=== PATIENT | female | born 1960 | race Caucasian/White ===

== ENCOUNTER 2016-07-30 13:31 | Emergency (ER) | payer OTHER ==
[~2016-07-30] VITALS: Ht 162.6 cm; Wt 63.6 kg
[~2016-07-30 13:31] MED LIST: ALBU0.08 NEB; ALBU1AER9 INH; ATV1 PO; BUPR-79 PO; CYAN3INJ IM; FENT75DI2 TOP; LEVO50TA6 PO; ONDA-63 PO; ONDA4TAB46 SL; ONDA8TAB62 SL; OXYC7.5T65 PO; PRM/125 PO; PROM50TA3 PO; VARE1PAK10 PO
[2016-07-30 13:41] VITALS: TEMP 36.9; Ht 162.6 cm; Wt 63.6 kg
[2016-07-30] MEDS ORDERED: OXGN (14:42)
--- NOTE | 2016-07-30 15:37 | EMERGENCY ROOM VISIT NOTE ---
History Report prepared by Win: Meri Mcmahon Under the Supervision of: Dr. Darron Magaña D.O. First contact with patient: 14:44 Chief Complaint: DIARRHEA Stated Complaint: C-DIFF Nursing Triage Summary: dx with c diff for 2 months pt on antibiotics pt reports increase pain and dirrahea History of Present Illness The patient is a 56 year old female who presents to the Emergency Room with complaints of persistent diarrhea for the past 6 months. She states she will have up to 20 episodes of diarrhea a day, she has "lost count". She reports she was diagnosed with clostridium difficile 2 months ago and was placed on antibiotics. She also has a history of lung cancer and states she has been on multiple antibiotics for her cancer in the past few months. She underwent a lobectomy in November 2014 and uses Oxygen at night to help her breathe. She has been vomiting intermittently ever since the diarrhea started, and she believes this is secondary to abdominal pain that she is also experiencing. Her pain is located in her lower stomach, and she reports pain medicine and anti-emetics help relieve her discomfort. She denies any known triggers for her abdominal pain but admits walking worsens it, as does transitioning from sitting to standing. The patient states she finished her most recent round of antibiotics yesterday. Her last bowel movement was about 1 hour prior to arrival. She denies any melena or hematochezia, but states the last time she was in the hospital, she was told there was blood in her stool. She denies any urinary symptoms, fevers or URI symptoms. She denies any history of toxic megacolon or colitis. Source of History: patient Onset: 6 months [employer] Position: abdomen Timing: other (persistent) Associated Symptoms: + abdominal pain, + nausea, + vomiting, No fevers, No hematochezia, No melena, No urinary symptoms Review of Systems See HPI for pertinent positives and negatives. A total of ten systems were reviewed and were otherwise negative. Past Medical & Surgical Medical Problems: (1) Acute head trauma (2) Acute headache (3) Asthma, Unspecified (4) Benign hypertension (5) Bronchitis (6) Cephalgia (7) Chest pain (8) Chronic neck pain (9) Chronic obstructive lung disease (10) Coronary artery disease (11) Cough with hemoptysis (12) Depression (13) Ear pain, right (14) Facial pain (15) Gastroparesis (16) Headache (17) Headache (18) Headache (19) Headache (20) Hemoptysis (21) Kidney stone (22) Lung cancer (23) Lung cancer (24) Migraine (25) Migraine (26) Migraine (27) Migraine (28) MIGRAINE UNSPECIFIED W/O INTRACT MGRN W/O STATUS MIGRAINOSUS (29) MYALGIA AND MYOSITIS NOS (30) Pneumonia (31) PNEUMONIA, ORGANISM NOS (32) Right sided abdominal pain (33) Transient ischemic attack (34) UTI (urinary tract infection) Surgical Problems: (1) section (2) Cholecystectomy (3) History of lobectomy of lung (4) Hysterectomy (5) Post-operative state (6) S/P thoracotomy Family History Diabetes mellitus FH: cancer FH: heart disease FHx: gallbladder disease Hypertension Kidney stones Social History Smoking Status: Former Smoker Alcohol Use: none Drug Use: none Marital Status: Housing Status: lives with family Occupation Status: employed Current/Historical Medications Scheduled Bupropion (Wellbutrin Sr), 150 MG PO BID Cyanocobalamin (Vitamin B-12 Inj), 1 ML IM WK Estrogens, Conjugated (Premarin), 1.25 MG PO QAM Fentanyl (Fentanyl), 75 MCG TOP [id number] Levothyroxine Sodium (Levothyroxine Sodium), 50 MCG PO DAILY Lorazepam (Lorazepam), 1 MG PO BID Oxygen (Oxygen), 2 LITERS NA PRN Varenicline Tartrate (Chantix Continuing Month), 1 MG PO BID Scheduled PRN Albuterol Soln (Proventil 0.083% 2.5MG/3ML), 2.5 MG NEB Q4H PRN for SOB/Wheezing Albuterol Sulfate (Proair Hfa), 2 PUFFS INH Q4H PRN for Wheezing Ondansetron (Ondansetron HCl), 8 MG PO Q8 PRN for Nausea or Vomiting Ondansetron Hcl (Zofran), 4 MG SL Q6H PRN for Nausea Ondansetron Odt (Zofran Odt), 8 MG SL Q6H PRN for Nausea Oxycodone/Acetaminophen 7.5MG/325MG (Percocet 7.5MG/325MG), 1 TAB PO Q4H PRN for Pain Promethazine Hcl (Phenergan), 50 MG PO Q6 PRN for Nausea or Vomiting Allergies Coded Allergies: Codeine (Verified Allergy, Intermediate, HIVES-OK TO TAKE PERCOCET,VICODIN , ETC, 07/30/16) HAS HIVES AND TROUBLE BREATHING WITH TYLENOL # 3, OK TO TAKE PERCOCET, VICODIN, ETC. Ketorolac (Verified Allergy, Intermediate, HIVES, 07/30/16) PATIENT STATES TROUBLE BREATHING AFTER TAKING Coconut (Verified Allergy, Mild, RASH, 07/30/16) Metoclopramide (Verified Allergy, Mild, RASH, SOB, 07/30/16) Aspirin (Verified Allergy, Unknown, rash, 07/30/16) Iodinated Diagnostic Agents (Verified Allergy, Unknown, TACHYCARDIA,SKIN WARM &RED, DRY MOUTH, 07/30/16) Latex1 -Allergic Contact Dermititis (Verified Allergy, Unknown, RASH, ) Naratriptan (Verified Allergy, Unknown, UNKNOWN, 07/30/16) Nortriptyline (Verified Allergy, Unknown, UNKNOWN, 07/30/16) Quinolones (Verified Allergy, Unknown, UNKNOWN, 07/30/16) Morphine (Verified Adverse Reaction, Intermediate, HALLUCINATIONS, 07/30/16) Shellfish (Verified Adverse Reaction, Intermediate, SHORTNESS OF BREATH, ) Physical Exam Vital Signs Date Time Temp Pulse Resp B/P Pulse Ox O2 Delivery O2 Flow Rate FiO2 07/30/16 18:35 85 18 132/87 95 07/30/16 15:57 97 18 137/95 96 Room Air 07/30/16 13:41 36.9 103 20 139/80 91 Room Air Physical Exam GENERAL: Awake, alert, well-appearing, in no acute distress ABDOMEN: Soft, non-distended. Diffuse tenderness on exam. Medical Decision & Procedures ER Provider Diagnostic Interpretation: This X-Ray was reviewed and interpreted by myself and the radiologist. CHEST AND ABDOMEN 2 VIEWS IMPRESSION: 1. No significant change compared to the prior study. 2. No acute process within the chest. 3. Moderate to large amount of well-formed stool seen throughout the colon and rectum. Electronically signed by: Lazaro Real M.D. 07/30/2016 5:23 PM Laboratory Results 07/30/16 16:32 Red Blood Count 4.22, Mean Corpuscular Volume 88.9, Mean Corpuscular Hemoglobin 29.4, Mean Corpuscular Hemoglobin Concent 33.1, Mean Platelet Volume 10.2, Neutrophils (%) (Auto) 59.4, Lymphocytes (%) (Auto) 26.7, Monocytes (%) (Auto) 10.4, Eosinophils (%) (Auto) 3.1, Basophils (%) (Auto) 0.2, Neutrophils # (Auto ) 2.67, Lymphocytes # (Auto) 1.20, Monocytes # (Auto) 0.47, Eosinophils # (Auto ) 0.14, Basophils # (Auto) 0.01 07/30/16 16:32 Test 07/30/16 16:32 07/30/16 16:40 White Blood Count 4.50 K/uL (4.8-10.8) Red Blood Count 4.22 M/uL (4.2-5.4) Hemoglobin 12.4 g/dL (12.0-16.0) Hematocrit 37.5 % (37-47) Mean Corpuscular Volume 88.9 fL (80-100) Mean Corpuscular Hemoglobin 29.4 pg (25-34) Mean Corpuscular Hemoglobin Concent 33.1 g/dl (32-36) Platelet Count 157 K/uL (130-400) Mean Platelet Volume 10.2 fL (7.4-10.4) Neutrophils (%) (Auto) 59.4 % Lymphocytes (%) (Auto) 26.7 % Monocytes (%) (Auto) 10.4 % Eosinophils (%) (Auto) 3.1 % Basophils (%) (Auto) 0.2 % Neutrophils # (Auto) 2.67 K/uL (1.4-6.5) Lymphocytes # (Auto) 1.20 K/uL (1.2-3.4) Monocytes # (Auto) 0.47 K/uL (0.11-0.59) Eosinophils # (Auto) 0.14 K/uL (0-0.5) Basophils # (Auto) 0.01 K/uL (0-0.2) RDW Standard Deviation 39.8 fL (36.4-46.3) RDW Coefficient of Variation 12.3 % (11.5-14.5) Immature Granulocyte % (Auto) 0.2 % Immature Granulocyte # (Auto) 0.01 K/uL (0.00-0.02) Anion Gap 10.0 mmol/L (3-11) Est Creatinine Clear Calc Drug Dose 64.6 ml/min Estimated GFR () 88.8 Estimated GFR (Non- 76.6 BUN/Creatinine Ratio 20.6 (10-20) Calcium Level 9.2 mg/dl (8.5-10.1) Total Bilirubin 0.2 mg/dl (0.2-1) Aspartate Amino Transf (AST/SGOT) 36 U/L (15-37) Alanine Aminotransferase (ALT/SGPT) 31 U/L (12-78) Alkaline Phosphatase 88 U/L (45-117) Total Protein 6.9 gm/dl (6.4-8.2) Albumin 3.4 gm/dl (3.4-5.0) Globulin 3.5 gm/dl (2.5-4.0) Albumin/Globulin Ratio 1.0 (0.9-2) Lipase 101 U/L (73-393) Urine Color YELLOW Urine Appearance CLEAR (CLEAR) Urine pH 6.0 (4.5-7.5) Urine Specific [place] 1.019 (1.000-1.030) Urine Protein NEG (NEG) Urine Glucose (UA) NEG (NEG) Urine Ketones NEG (NEG) Urine Occult Blood NEG (NEG) Urine Nitrite NEG (NEG) Urine Bilirubin NEG (NEG) Urine Urobilinogen NEG (NEG) Urine Leukocyte Esterase NEG (NEG) Urine WBC (Auto) 1-5 /hpf (0-5) Urine RBC (Auto) 0-4 /hpf (0-4) Urine Hyaline Casts (Auto) 1-5 /lpf (0-5) Urine Epithelial Cells (Auto) >30 /lpf (0-5) Urine Bacteria (Auto) 1+ (NEG) Urine Test NEG (NEG) Laboratory results reviewed by me Medications Administered Medications (Trade) Dose Ordered Sig/Tone Route Start Time Stop Time Status Last Admin Dose Admin Hydromorphone HCl (Dilaudid Inj) 1 mg TODAY@1630 IV 07/30/16 16:30 07/30/16 18:30 DC 07/30/16 17:50 1 MG Ondansetron HCl (Zofran Inj) 4 mg TODAY@1630 IV 07/30/16 16:30 07/30/16 18:30 DC 07/30/16 16:53 4 MG Hydromorphone HCl (Dilaudid Inj) 1 mg NOW STAT IV 07/30/16 17:41 07/30/16 17:43 DC 07/30/16 17:41 1 MG ED Course 1531: The patient was evaluated in room A10. A complete history and physical exam was performed. 1630: Zofran 4 mg IV, Dilaudid 1 mg IV. 1741: Dilaudid 1 mg IV. 1805: Nursing informed me the patient is refusing a soap suds enema here in the ED. She would like to take it home if possible. 1825: I reevaluated the patient. She is feeling better. I discussed her results and discharge instructions and she verbalized complete understanding and agreement. 1830: NSS 1000 ml @ 500 mls/hr IV. Medical Decision Prior records/ancillary studies reviewed. Triage Nursing notes reviewed and agree them. The patient's history was concerning for abdominal pain. Differential diagnosis: Etiologies such as appendicitis, diverticulitis, PUD, biliary pathology, UTI, pancreatitis, obstruction, mesenteric ischemia, aortic pathology, infections, inflammatory bowel disease, renal colic, as well as others were entertained. MDM: Patient is a 56-year-old female with a chronic history of C. difficile colitis who is currently on her third 2 week treatment course of Flagyl. She is complaining of abdominal pain which she states is only treated with IV Dilaudid. He Evaluated the Patient Diarrhea Afterwards and Saw and Evaluated the Patient As Well. She Has a Benign Exam. Patient also has a pain contract with 60 to have 2 doses of IV pain medication monthly. I advised the resident that she can go ahead and have one of her 2 scheduled doses. We will check basic labs and an x-ray no peritoneal signs or acute findings on exam. Evaluation was completed by the resident and I also saw her care. Please see the resident's note for further details of the patient's condition disposition and care. Patient decided that she wanted to do home treatments with enema and mag citrate. The patient's presentation and history is c/w the impression provided. A partial list of DDx that has been considered is listed above. By the evaluation outlined above other emergent etiologies such as those listed in the differential, as well as others, were deemed relatively unlikely. The patient has been informed about today's findings. All questions were answered to satisfaction and understanding. They are pleased with the care provided. Patient education and return instructions were discussed as per my usual and the patient was discharged in stable condition as agreed upon by the patient. The patient was referred for close follow-up and informed that they will need to call to schedule appointment during the next business hours. The chart was completed utilizing a scribe and [employer] Speech voice recognition software. Utilizing these services results in errors at time as they are imperfect. Grammatical errors, random word insertions, pronoun errors, and incomplete sentences are an occasional consequence of this system due to software limitations, ambient noise, and hardware issues. Any formal questions or concerns about the content, text, or information contained within the body of this dictation should be directly addressed to the physician for clarification. Impression Primary Impression: Constipation Additional Impressions: Abdominal pain, Recurrent Clostridium difficile diarrhea Scribe Attestation The scribe's documentation has been prepared under my direction and personally reviewed by me in its entirety. I confirm that the note above accurately reflects all work, treatment, procedures, and medical decision making performed by me. Departure Information Dispostion Home / Self-Care Referrals Doug Peterson M.D. (PCP) Patient Instructions A Signature Page, [facility]
[2016-07-30] MEDS ORDERED: SODIUM CHLORIDE 0.9% 1000ML 1,000 ML IV SCH ×2 (16:30→18:30)
[2016-07-30] MEDS ORDERED: ONDANSETRON INJ 2 MG/ML 2 ML VIAL IV SCH (16:30)
[2016-07-30] MEDS: HYDROmorphone INJ 1 MG/ML SYR IV SCH ×2 (16:30→17:50)
[2016-07-30 16:43] LABS: BASO % 0.2 %; BASO ABS # 0.01 K/uL (0-0.2); COMPLETE YES; EOS % 3.1 %; HEMATOCRIT 37.5 % (37-47); IG% 0.2 %; LYMPH % 26.7 %; MEAN CELL VOLUME 88.9 fL (80-100); MEAN CORPUSCULAR HEMOGLOBIN 29.4 pg (25-34); MEAN CORPUSCULAR HGB CONC 33.1 g/dl (32-36); MEAN PLATELET VOLUME 10.2 fL (7.4-10.4); MONO % 10.4 %; NEUT % 59.4 %; PLATELET COUNT 157 K/uL (130-400); RED BLOOD COUNT 4.22 M/uL (4.2-5.4)
[2016-07-30 16:56] LABS: URINE APPEARANCE CLEAR (CLEAR); URINE BILIRUBIN NEG (NEG); URINE COLOR YELLOW; URINE EPITHELIAL CELL AUTO >30 /lpf (0-5); URINE NITRITE NEG (NEG); URINE SPECIFIC GRAVITY 1.019 (1.000-1.030); UROBILINOGEN NEG (NEG); ZZUR CULT IF INDIC CLEAN CATCH YES
[2016-07-30 17:00] LABS: BUN/CREATININE RATIO 20.6 (10-20); CALCIUM 9.2 mg/dl (8.5-10.1); CREATININE 0.86 mg/dl (0.60-1.20); POTASSIUM 4.2 mmol/L (3.5-5.1)
[2016-07-30 17:01] LABS: MANUAL MICROSCOPIC REQUIRED? NO; REVIEW REQ? NO
--- NOTE | 2016-07-30 17:25 | DIAGNOSTIC IMAGING REPORT ---
CHEST AND ABDOMEN 2 VIEWS HISTORY: Right upper quadrant abdominal pain. COMPARISON: Chest and abdominal series 07/01/2016. FINDINGS: Stable postoperative changes within the right hemithorax. There is emphysema. No new focal lung consolidations. Right basilar densities likely represent scarring. The heart is normal in size. No pneumoperitoneum. No pneumatosis. Prior cholecystectomy. Moderate to large amount of well-formed stool seen throughout the colon and rectum. No renal or ureteral calculi. IMPRESSION: 1. No significant change compared to the prior study. 2. No acute process within the chest. 3. Moderate to large amount of well-formed stool seen throughout the colon and rectum. Electronically signed by: Lazaro Real M.D. 07/30/2016 5:23 PM
[2016-07-30] MEDS ORDERED: SOAP SUDS ENEMA PR STA (17:41)
[2016-07-30] MEDS ORDERED: HYDROmorphone INJ 1 MG/ML SYR IV STA (17:41)
[2016-07-30 18:35] VITALS: BP 132/87; PULSE 85; O2SAT 95
--- NOTE | 2016-07-30 18:37 | EMERGENCY ROOM VISIT NOTE ---
History First contact with patient: 14:44 Chief Complaint: DIARRHEA Stated Complaint: C-DIFF Nursing Triage Summary: dx with c diff for 2 months pt on antibiotics pt reports increase pain and dirrahea History of Present Illness The patient is a 56 year old female who presents to the Emergency Room with complaints of diarrhea which started in April. Claims she is having 10-20 episodes daily of loose stool, without blood ( although she says her previous stools were tested positive for blood). The diarrhea is associated with severe sharp abdominal pain in her lower stomach, without radiation into her back or groin. The pain is exacerbated with walking and transitioning from sitting to standing. She is unable to identify triggers however. The patient claims that IV pain medicine and anti-nausea medication are the only things which relieve her symptoms- "nothing else works". She also experiences nausea and intermittent vomiting, which occurs secondary to pain, as per patient. She denies fevers/URI symptoms. No UTI symptoms - dysuria/freq/ urgency/hematuria. No fecal incontinence. She claims she completed her second course of antibiotics yesterday. Patient says she was on multiple prophylactic antibiotics after her lobectomy and chemotherapy for lung cancer in 2014. And she has had two previous admissions for c.diff diarrhea treated with antibiotics. Review of Systems See HPI for pertinent positives and negatives. A total of ten systems were reviewed and were otherwise negative. Past Medical/Surgical History Medical Problems: (1) Acute head trauma (2) Acute headache (3) Asthma, Unspecified (4) Benign hypertension (5) Bronchitis (6) Cephalgia (7) Chest pain (8) Chronic neck pain (9) Chronic obstructive lung disease (10) Coronary artery disease (11) Cough with hemoptysis (12) Depression (13) Ear pain, right (14) Facial pain (15) Gastroparesis (16) Headache (17) Headache (18) Headache (19) Headache (20) Hemoptysis (21) Kidney stone (22) Lung cancer (23) Lung cancer (24) Migraine (25) Migraine (26) Migraine (27) Migraine (28) MIGRAINE UNSPECIFIED W/O INTRACT MGRN W/O STATUS MIGRAINOSUS (29) MYALGIA AND MYOSITIS NOS (30) Pneumonia (31) PNEUMONIA, ORGANISM NOS (32) Right sided abdominal pain (33) Transient ischemic attack (34) UTI (urinary tract infection) Surgical Problems: (1) section (2) Cholecystectomy (3) History of lobectomy of lung (4) Hysterectomy (5) Post-operative state (6) S/P thoracotomy Family History Diabetes mellitus FH: cancer FH: heart disease FHx: gallbladder disease Hypertension Kidney stones Social History Smoking Status: Former Smoker Alcohol Use: none Drug Use: none Marital Status: Housing Status: lives with family Occupation Status: employed Current/Historical Medications Scheduled Bupropion (Wellbutrin Sr), 150 MG PO BID Cyanocobalamin (Vitamin B-12 Inj), 1 ML IM WK Estrogens, Conjugated (Premarin), 1.25 MG PO QAM Fentanyl (Fentanyl), 75 MCG TOP [id number] Levothyroxine Sodium (Levothyroxine Sodium), 50 MCG PO DAILY Lorazepam (Lorazepam), 1 MG PO BID Oxygen (Oxygen), 2 LITERS NA PRN Varenicline Tartrate (Chantix Continuing Month), 1 MG PO BID Scheduled PRN Albuterol Soln (Proventil 0.083% 2.5MG/3ML), 2.5 MG NEB Q4H PRN for SOB/Wheezing Albuterol Sulfate (Proair Hfa), 2 PUFFS INH Q4H PRN for Wheezing Ondansetron (Ondansetron HCl), 8 MG PO Q8 PRN for Nausea or Vomiting Ondansetron Hcl (Zofran), 4 MG SL Q6H PRN for Nausea Ondansetron Odt (Zofran Odt), 8 MG SL Q6H PRN for Nausea Oxycodone/Acetaminophen 7.5MG/325MG (Percocet 7.5MG/325MG), 1 TAB PO Q4H PRN for Pain Promethazine Hcl (Phenergan), 50 MG PO Q6 PRN for Nausea or Vomiting Allergies Coded Allergies: Codeine (Verified Allergy, Intermediate, HIVES-OK TO TAKE PERCOCET,VICODIN , ETC, 07/30/16) HAS HIVES AND TROUBLE BREATHING WITH TYLENOL # 3, OK TO TAKE PERCOCET, VICODIN, ETC. Ketorolac (Verified Allergy, Intermediate, HIVES, 07/30/16) PATIENT STATES TROUBLE BREATHING AFTER TAKING Coconut (Verified Allergy, Mild, RASH, 07/30/16) Metoclopramide (Verified Allergy, Mild, RASH, SOB, 07/30/16) Aspirin (Verified Allergy, Unknown, rash, 07/30/16) Iodinated Diagnostic Agents (Verified Allergy, Unknown, TACHYCARDIA,SKIN WARM &RED, DRY MOUTH, 07/30/16) Latex1 -Allergic Contact Dermititis (Verified Allergy, Unknown, RASH, ) Naratriptan (Verified Allergy, Unknown, UNKNOWN, 07/30/16) Nortriptyline (Verified Allergy, Unknown, UNKNOWN, 07/30/16) Quinolones (Verified Allergy, Unknown, UNKNOWN, 07/30/16) Morphine (Verified Adverse Reaction, Intermediate, HALLUCINATIONS, 07/30/16) Shellfish (Verified Adverse Reaction, Intermediate, SHORTNESS OF BREATH, ) Physical Exam Vital Signs Date Time Temp Pulse Resp B/P Pulse Ox O2 Delivery O2 Flow Rate FiO2 07/30/16 18:35 85 18 132/87 95 07/30/16 15:57 97 18 137/95 96 Room Air 07/30/16 13:41 36.9 103 20 139/80 91 Room Air Physical Exam GENERAL: alert, well appearing, thin, sitting in bed, no acute distress, non- toxic HEAD: Normocephalic, atraumatic. No sinus tenderness. EYES: PERRL, EOMI, normal conjunctiva OROPHARYNX: no exudate, no erythema, lips, buccal mucosa, and tongue normal and mucous membranes are dry NECK: supple, no nuchal rigidity, no adenopathy, non-tender LUNGS: Clear to auscultation. Normal chest wall mechanics, good air entry. No crepitations, crackles, or wheezes HEART: no murmurs, S1 normal and S2 normal CHEST: No reproducible tenderness. ABDOMEN: abdomen soft, non-distended, tenderness to palpation on the RUQ and RLQ extending to the suprapubic region. Normo-active bowel sounds, no masses, no rebound or guarding. BACK: Back is symmetrical on inspection, no deformities, no midline tenderness, CVA tenderness on right. SKIN: Warm, pink, dry. No erythema, rashes, or bruising. EXTREMITIES: Grossly normal. Moving all 4 limbs, strength 5/5. No pitting edema. Calves non tender. NEURO: Alert, Ox3. No focal deficits. Normal sensorium, cranial nerves II-XII grossly intact, normal speech. PSYCH: Mood and affect appropriate. Medical Decision & Procedures ER Provider Diagnostic Interpretation: CHEST AND ABDOMEN 2 VIEWS HISTORY: Right upper quadrant abdominal pain. COMPARISON: Chest and abdominal series 07/01/2016. FINDINGS: Stable postoperative changes within the right hemithorax. There is emphysema. No new focal lung consolidations. Right basilar densities likely represent scarring. The heart is normal in size. No pneumoperitoneum. No pneumatosis. Prior cholecystectomy. Moderate to large amount of well-formed stool seen throughout the colon and rectum. No renal or ureteral calculi. IMPRESSION: Laboratory Results 07/30/16 16:32 Red Blood Count 4.22, Mean Corpuscular Volume 88.9, Mean Corpuscular Hemoglobin 29.4, Mean Corpuscular Hemoglobin Concent 33.1, Mean Platelet Volume 10.2, Neutrophils (%) (Auto) 59.4, Lymphocytes (%) (Auto) 26.7, Monocytes (%) (Auto) 10.4, Eosinophils (%) (Auto) 3.1, Basophils (%) (Auto) 0.2, Neutrophils # (Auto ) 2.67, Lymphocytes # (Auto) 1.20, Monocytes # (Auto) 0.47, Eosinophils # (Auto ) 0.14, Basophils # (Auto) 0.01 07/30/16 16:32 Test 07/30/16 16:32 07/30/16 16:40 White Blood Count 4.50 K/uL (4.8-10.8) Red Blood Count 4.22 M/uL (4.2-5.4) Hemoglobin 12.4 g/dL (12.0-16.0) Hematocrit 37.5 % (37-47) Mean Corpuscular Volume 88.9 fL (80-100) Mean Corpuscular Hemoglobin 29.4 pg (25-34) Mean Corpuscular Hemoglobin Concent 33.1 g/dl (32-36) Platelet Count 157 K/uL (130-400) Mean Platelet Volume 10.2 fL (7.4-10.4) Neutrophils (%) (Auto) 59.4 % Lymphocytes (%) (Auto) 26.7 % Monocytes (%) (Auto) 10.4 % Eosinophils (%) (Auto) 3.1 % Basophils (%) (Auto) 0.2 % Neutrophils # (Auto) 2.67 K/uL (1.4-6.5) Lymphocytes # (Auto) 1.20 K/uL (1.2-3.4) Monocytes # (Auto) 0.47 K/uL (0.11-0.59) Eosinophils # (Auto) 0.14 K/uL (0-0.5) Basophils # (Auto) 0.01 K/uL (0-0.2) RDW Standard Deviation 39.8 fL (36.4-46.3) RDW Coefficient of Variation 12.3 % (11.5-14.5) Immature Granulocyte % (Auto) 0.2 % Immature Granulocyte # (Auto) 0.01 K/uL (0.00-0.02) Anion Gap 10.0 mmol/L (3-11) Est Creatinine Clear Calc Drug Dose 64.6 ml/min Estimated GFR () 88.8 Estimated GFR (Non- 76.6 BUN/Creatinine Ratio 20.6 (10-20) Calcium Level 9.2 mg/dl (8.5-10.1) Total Bilirubin 0.2 mg/dl (0.2-1) Aspartate Amino Transf (AST/SGOT) 36 U/L (15-37) Alanine Aminotransferase (ALT/SGPT) 31 U/L (12-78) Alkaline Phosphatase 88 U/L (45-117) Total Protein 6.9 gm/dl (6.4-8.2) Albumin 3.4 gm/dl (3.4-5.0) Globulin 3.5 gm/dl (2.5-4.0) Albumin/Globulin Ratio 1.0 (0.9-2) Lipase 101 U/L (73-393) Urine Color YELLOW Urine Appearance CLEAR (CLEAR) Urine pH 6.0 (4.5-7.5) Urine Specific [place] 1.019 (1.000-1.030) Urine Protein NEG (NEG) Urine Glucose (UA) NEG (NEG) Urine Ketones NEG (NEG) Urine Occult Blood NEG (NEG) Urine Nitrite NEG (NEG) Urine Bilirubin NEG (NEG) Urine Urobilinogen NEG (NEG) Urine Leukocyte Esterase NEG (NEG) Urine WBC (Auto) 1-5 /hpf (0-5) Urine RBC (Auto) 0-4 /hpf (0-4) Urine Hyaline Casts (Auto) 1-5 /lpf (0-5) Urine Epithelial Cells (Auto) >30 /lpf (0-5) Urine Bacteria (Auto) 1+ (NEG) Urine Test NEG (NEG) Medications Administered Medications (Trade) Dose Ordered Sig/Tone Route Start Time Stop Time Status Last Admin Dose Admin Hydromorphone HCl (Dilaudid Inj) 1 mg TODAY@1630 IV 07/30/16 16:30 07/30/16 18:30 DC 07/30/16 17:50 1 MG Ondansetron HCl (Zofran Inj) 4 mg TODAY@1630 IV 07/30/16 16:30 07/30/16 18:30 DC 07/30/16 16:53 4 MG Hydromorphone HCl (Dilaudid Inj) 1 mg NOW STAT IV 07/30/16 17:41 07/30/16 17:43 DC 07/30/16 17:41 1 MG Medical Decision 56 year old female presented with abdominal pain and constipation. The patient was evaluated in room A10. A complete history and physical exam was performed. Etiologies such as appendicitis, diverticulitis, inflammatory bowel disease, renal colic, PUD, biliary pathology, pancreatitis, colitis, mesenteric ischemia , aortic pathology, infections, genitourinary, UTI, perforated viscus, fecal impaction as well as others were entertained. Her previous ED visits were reviewed and the following is noted: - She initially came in 06/05/16 with similar symptoms and was given 4mg IV Zofran, 2L IV NSS, 3 x 1mg IV Dilaudid and discharged with 500mg Flagyl TID x 10 days once a positive stool C. difficile test was reported - She subsequently returned with similar symptoms on 07/01/16 and was given 2 x 4mg IV Zofran, 1L IV NSS, 3 x 1mg IV Dilaudid. Stool tested positive for c.diff toxin B, and patient was discharged with 500mg Flagyl TID x 10 days for first relapse - In both admissions, her labs and imaging were grossly normal. - Patient is on a pain contract which allows her 2 doses of IV pain medication monthly After examination and prior to medication administration, patient threatened to leave the ED as the she claimed she had never been left so long in the ED to writhe in pain and she may as well be in pain at home. Patient was reassured the medication had been ordered and would be administered shortly. Patient was given 1mg IV Dilaudid and 4mg IV Zofran for symptom relief. Additionally, 1L of IV normal saline was ordered to improve hydration status. Lab work was performed. CBC, BMP, LFT, and lipase were all within normal limits. BUN:Cr ratio was borderline elevated at 20.6. Urine screen was negative for , and urinalysis showed contamination but no evidence of urinary infection. Additionally, urine specific gravity was normal and there was no trace of ketones in the urine. Abdominal series reported no significant change compared to the prior study, no acute process within the chest, moderate to large amount of well-formed stool seen throughout the colon and rectum. These lab and x-ray findings are not consistent with patient's clinical history X-ray findings were discussed with patient, and patient was offered a soap suds enema to clear rectum in efforts to reduce pain symptoms. Patient agreeable, provided she receive some Dilaudid prior to the procedure. She was not amenable to any other form of analgesia. After patient was administered 1mg IV Dilaudid, she requested to leave saying she would perform bowel cleaning at home. Her reasoning was that she had her daughter coming to pick her up and her daughter has three kids and she did not have time for the procedure. Discharge instructions were provided to the patient: To use OTC fleet/ phosphorus enema to clear the rectum, followed by citrate magnesium to clear stool from the proximal colon. Patient was advised no antibiotics were needed at this time, as it is possible her symptoms would be alleviated with these procedures. Patient understood and agreeable with care plan, and was discharged well. [place] Drug Monitoring Program Search Results: patient reviewed within database Impression Primary Impression: Abdominal pain Additional Impressions: Fecal impaction, Diarrhea Departure Information Dispostion Home / Self-Care Condition GOOD Referrals Doug Peterson M.D. (PCP) Patient Instructions A Signature Page, My [employer] Additional Instructions You presented to the ED today with severe abdominal pain. Your labs were all normal, and your urine did not indicate any infection. Your abdominal imaging did reveal a moderate amount of stool through out the colon. As such, we recommend a fleet/phosphorus enema be done at home. After this, magnesium citrate can be used to clean the rest of the bowel. Both of these can be purchased over the counter, please follow box instructions. Remember to stay well hydrated during the process, but hydration with water is encouraged on a daily basis. No antibiotics to be given at this time, as it is felt that these procedures may help to resolve your symptoms. You have been examined and treated today on an emergency basis only. This is not a substitute for, or an effort to provide, complete comprehensive medical care. It is impossible to recognize and treat all injuries or illnesses in a single emergency department visit. It is therefore important that you make a follow up with your physician for close monitoring. Return for worsening symptoms or if you develop fever, vomiting, or any other concerning symptoms such as ongoing diarrhea despite fleets/bowel cleaning.
== END 2016-07-30 18:37 | disposition home or self-care (01) ==
LOC: C.EDB 13:33 → C.EDA 18:37
DX: R10.9 Unspecified abdominal pain (principal); K56.41 Fecal impaction; R19.7 Diarrhea, unspecified; I10 Essential (primary) hypertension; J44.9 Chronic obstructive pulmonary disease, unspecified; J45.909 Unspecified asthma, uncomplicated; I25.10 Atherosclerotic heart disease of native coronary artery without angina pectoris; F32.9 Major depressive disorder, single episode, unspecified; Z79.899 Other long term (current) drug therapy; Z79.2 Long term (current) use of antibiotics; Z86.19 Personal history of other infectious and parasitic diseases; Z85.118 Personal history of other malignant neoplasm of bronchus and lung; Z86.73 Personal history of transient ischemic attack (TIA), and cerebral infarction without residual deficits; Z87.891 Personal history of nicotine dependence

== ENCOUNTER → 2016-08-28 | Outpatient (CLI) | payer OTHER ==
[~2016-08-28] MED LIST changes: +ALBINS/ INH; +CHN/1 PO; +CYAN100074 IM; +CYM30 PO; +FIDA1TAB PO; +GABA1CAP4 PO; +ONDA8TAB13 SL; +OXGN; +PROAIR INH; -PROM50TA3 PO; +VNTHFA/IN INH
[2016-08-28 14:20] LABS: INFLUENZA A PCR Neg for Influ A (NEG); INFLUENZA B PCR Neg for Influ B (NEG)
== END | disposition home or self-care (01) ==
LOC: C.LAB 10:33
PROVIDERS: ATTEND Internal Medicine Pulmonary Disease
DX: R05 Cough (principal)

== ENCOUNTER 2016-09-10 17:48 | Emergency (ER) | payer OTHER ==
[~2016-09-10] VITALS: Ht 162.6 cm; Wt 60.3 kg
[~2016-09-10 17:48] MED LIST changes: -ALBINS/ INH; -CHN/1 PO; -CYAN100074 IM; -CYM30 PO; -FIDA1TAB PO; -GABA1CAP4 PO; -ONDA8TAB13 SL; -PROAIR INH; -VNTHFA/IN INH
[2016-09-10 17:51] VITALS: TEMP 37.3; Ht 162.6 cm; Wt 60.3 kg
[2016-09-10] MEDS ORDERED: ALBINS/ INH (18:37)
[2016-09-10] MEDS ORDERED: PROAIR INH (18:37)
[2016-09-10] MEDS ORDERED: ONDA8TAB13 SL (18:41)
--- NOTE | 2016-09-10 18:41 | EMERGENCY ROOM VISIT NOTE ---
ED Visit Note First contact with patient: 17:59 CHIEF COMPLAINT: Migraine headache HISTORY OF PRESENT ILLNESS: Patient is a 56-year-old female who presents to the emergency department by private vehicle for evaluation of a migraine headache. She reports a loss a history of migraine headaches for which she follows with Dr. Ramirez of neurology. The patient reports that her symptoms started on Friday. She took Aleve which did seem to help. Yesterday, her symptoms worsened. Today she developed nausea and vomiting. She reports that she is also had photophobia as well as phonophobia. She denies any new symptoms otherwise. She 's had multiple imaging studies performed of her head which is unremarkable. The patient has a fentanyl patch in place secondary to a LEFT lower lobectomy performed late in the summer. She did take 1 oxycodone today proximally 7 hours ago without relief of symptoms as well. The patient denies any new symptoms. She contacted her primary care provider's office and was directed to the emergency Department for further evaluation and management. The patient rates her current discomfort as a 9.5/10. She denies any fevers, chills, blurry vision, double vision, slurred speech, facial droop, unilateral weakness/ numbness, chest pain, or abdominal pain. REVIEW OF SYSTEMS: A review of systems was performed with positives and pertinent negatives listed in the history of present illness. All other systems were reviewed and are negative. ALLERGIES: Multiple allergies listed above. MEDICATIONS: Reviewed and discussed with the patient. PMH: Migraines, lung cancer SOCIAL HISTORY: Patient is a 56-year-old female who lives locally. PHYSICAL EXAM: VITAL SIGNS - Vital signs and nursing notes were reviewed. GENERAL - 56-year-old female appearing her stated age who is in no acute distress. Communicates well with provider and answers questions appropriately. HEAD - Normocephalic, Atraumatic. No Maya's Sign or Raccoon's Eyes. No depressed skull fractures palpable. EYES - PERRL with EOMI bilaterally. Sclera anicteric. Palpebral conjunctiva pink and moist with no injection noted. EARS - No deformities of external structures noted on gross examination bilaterally. No pain elicited with palpation of the tragus bilaterally. External auditory canals without discharge or otorrhea. Tympanic membranes pearly ayoub without retraction or bulging. NOSE - Midline and without cyanosis. No epistaxis or purulent drainage noted. Septum midline without deviation or septal hematoma noted. MOUTH/OROPHARYNX - Without perioral cyanosis. Buccal mucosa pink and moist and without leukoplakia. Tongue midline with equal elevation of palate bilaterally. No tonsillar hypertrophy, erythema, or exudates noted. Good dentition noted. NECK - Neck with FROM. Supple to palpation. No lymphadenopathy noted. No nuchal rigidity. LUNGS - Chest wall symmetric without accessory muscle use, intercostals retractions, or central cyanosis. Normal vesicular breath sounds CTA B/L. No wheezes, rales, or rhonchi appreciated. CARDIAC - RRR with S1/S2. No murmur, rubs, or gallops appreciated. ABDOMEN - Abdominal contour flat and without pulsations or visible masses. BS normoactive all four quadrants. No tenderness, palpable masses, hepatosplenomegaly, or ascites noted. EXTREMITIES - No pretibial edema present. +3/5 radial and dorsalis pedis pulses palpated throughout. FROM with no tremors, fasciculations, or clonus noted on PROM throughout. +5/5 strength noted in UE/LE bilaterally. NEUROLOGIC - Cranial nerves II through XII grossly intact. Sensory intact to light touch throughout. Patellar reflexes +2/4. Patient able to perform rapid alternating movements appropriately. Negative Pronator Drift. Negative Finger-to -nose. PSYCH - A&Ox3 and cooperates fully with examiner. Pt is very pleasant and interacts well with examiner. EMERGENCY DEPARTMENT COURSE: I examined the patient. The patient is on a narcotic injection per month treatment plan for their migraines. The patient was given 2 mg Dilaudid and 50 mg Phenergan intramuscularly per their usual protocol. The differential diagnosis includes acute intracranial bleed, meningitis, encephalitis, mass or mass effect, sinusitis, infection, tumor, headache, temporal arteritis and carbon monoxide exposure, and migraine. Patient was provided a prescription for 8 mg Zofran for home at her request. She has had this medication in the past, but ran out with this recent episode of migraine headache. The patient was discharged home in stable condition with a friend driving. Given the patient's presentation and stated complaint, I did elect to perform the above-mentioned workup. The patient is well-known to this facility for ongoing symptoms consistent with migrainous headaches. Her exam is otherwise unremarkable. The patient does have ethanol patch in place. She reports that it is scheduled to be removed tomorrow. I did instruct her to remove the patch today and not take any further narcotic medication. She acknowledges this. She was provided her typical pain medications. She was discharged home in good condition. DIAGNOSIS: Migraine headache DISCHARGE INSTRUCTIONS & TREATMENT: You have been treated in the Emergency Department for a Headache. You have received pain medicine in the emergency department which impairs your ability to operate a vehicle. It is illegal for you to drive after receiving these medicines. For pain control, you can use the following [id number] medicines (if >12 yo): - Regular strength (325mg/tab) Tylenol (acetaminophen) 2 tabs every 4-6 hours as needed. Do not exceed 12 tablets in a 24 hour period. Avoid taking more than 4 grams (4000 mg) of Tylenol per day. This includes any other sources of acetaminophen you may take on a regular basis. - Regular strength (200 mg/tab) Advil (ibuprofen) 1-2 tabs every 4-6 hours as needed. Do not exceed a dose of 3200 mg per day. You should relax in a quiet, dark place for the rest of the day. Avoid any possible triggers including: cigarette smoke, caffeine, nicotine, chocolate, wine, beer, loud noises or music, or bright lights. You should schedule a follow-up appointment in 2-3 days with your Primary Care Provider or established Neurologist for further evaluation and treatment of your Headache. Return to the Emergency Department if your current symptoms worsen despite treatment course outlined above, or if you develop any of the following symptoms : intractable pain despite aforementioned treatment course, visual disturbances , loss of vision, unilateral weakness or facial drooping, slurring of speech, loss of coordination, or loss of consciousness. Problem List Medical Problems: (1) Acute head trauma Status: Resolved (2) Acute headache Status: Resolved (3) Asthma, Unspecified Status: Chronic (4) Benign hypertension Status: Chronic (5) Bronchitis Status: Resolved (6) Cephalgia Status: Resolved (7) Chest pain Status: Resolved (8) Chronic neck pain Status: Chronic (9) Chronic obstructive lung disease Status: Chronic (10) Coronary artery disease Status: Chronic (11) Depression Status: Chronic (12) Ear pain, right Status: Resolved (13) Facial pain Status: Resolved (14) Gastroparesis Status: Chronic (15) Headache Status: Resolved (16) Headache Status: Resolved (17) Headache Status: Resolved (18) Headache Status: Resolved (19) Kidney stone Status: Resolved (20) Lung cancer Status: Chronic (21) Migraine Status: Resolved (22) Migraine Status: Resolved (23) Migraine Status: Resolved (24) Migraine Status: Chronic (25) MIGRAINE UNSPECIFIED W/O INTRACT MGRN W/O STATUS MIGRAINOSUS Status: Resolved (26) MYALGIA AND MYOSITIS NOS Status: Resolved (27) Pneumonia Status: Resolved (28) PNEUMONIA, ORGANISM NOS Status: Resolved (29) Right sided abdominal pain Status: Resolved (30) Transient ischemic attack Status: Resolved (31) UTI (urinary tract infection) Status: Resolved Surgical Problems: (1) section Status: Resolved (2) Cholecystectomy Status: Resolved (3) History of lobectomy of lung Status: Resolved (4) Hysterectomy Status: Resolved (5) Post-operative state Status: Resolved (6) S/P thoracotomy Status: Chronic Current/Historical Medications Scheduled Bupropion (Wellbutrin Sr), 150 MG PO BID Cyanocobalamin (Vitamin B-12 Inj), 1 ML IM WK Duloxetine HCl (Duloxetine HCl), 30 MG PO HS Estrogens, Conjugated (Premarin), 1.25 MG PO QAM Fentanyl (Fentanyl), 75 MCG TOP [id number] Gabapentin (Gabapentin), 300 MG PO HS Levothyroxine Sodium (Levothyroxine Sodium), 50 MCG PO DAILY Lorazepam (Lorazepam), 1 MG PO BID Oxygen (Oxygen), 2 LITERS NA PRN Varenicline Tartrate (Chantix Continuing Month), 1 MG PO BID Scheduled PRN Albuterol Sulf (Proventil 0.083% 2.5MG/3ML), 2.5 MG INH Q4 PRN for SOB/Wheezing Ondansetron (Ondansetron HCl), 8 MG PO Q8 PRN for Nausea or Vomiting Ondansetron Odt (Zofran Odt), 8 MG SL Q6H PRN for Nausea Ondansetron Odt (Zofran Odt), 8 MG SL Q6H PRN for Nausea Oxycodone/Acetaminophen 7.5MG/325MG (Percocet 7.5MG/325MG), 1 TAB PO Q4H PRN for Pain [Proair], 2 PUFF INH Q4 PRN for SOB/Wheezing Allergies Coded Allergies: Codeine (Verified Allergy, Intermediate, HIVES-OK TO TAKE PERCOCET,VICODIN , ETC, 09/10/16) HAS HIVES AND TROUBLE BREATHING WITH TYLENOL # 3, OK TO TAKE PERCOCET, VICODIN, ETC. Ketorolac (Verified Allergy, Intermediate, HIVES, 09/10/16) PATIENT STATES TROUBLE BREATHING AFTER TAKING Coconut (Verified Allergy, Mild, RASH, 09/10/16) Metoclopramide (Verified Allergy, Mild, RASH, SOB, 09/10/16) Aspirin (Verified Allergy, Unknown, rash, 09/10/16) Iodinated Diagnostic Agents (Verified Allergy, Unknown, TACHYCARDIA,SKIN WARM &RED, DRY MOUTH, 09/10/16) Latex1 -Allergic Contact Dermititis (Verified Allergy, Unknown, RASH, 09/10) Naratriptan (Verified Allergy, Unknown, UNKNOWN, 09/10/16) Nortriptyline (Verified Allergy, Unknown, UNKNOWN, 09/10/16) Quinolones (Verified Allergy, Unknown, UNKNOWN, 09/10/16) Morphine (Verified Adverse Reaction, Intermediate, HALLUCINATIONS, 09/10/16 ) Shellfish (Verified Adverse Reaction, Intermediate, SHORTNESS OF BREATH, ) Vital Signs Date Time Temp Pulse Resp B/P Pulse Ox O2 Delivery O2 Flow Rate FiO2 09/10/16 18:54 75 20 160/89 99 Room Air 09/10/16 17:51 37.3 90 17 139/88 95 Room Air Medications Administered Medications (Trade) Dose Ordered Sig/Tone Route Start Time Stop Time Status Last Admin Dose Admin Hydromorphone HCl (Dilaudid Inj) 2 mg NOW ONCE IM 09/10/16 18:45 09/10/16 18:46 DC 09/10/16 18:45 2 MG Promethazine HCl (Phenergan Inj) 50 mg NOW ONCE IM 09/10/16 18:45 09/10/16 18:46 DC 09/10/16 18:45 50 MG Departure Information Impression Primary Impression: Migraine Dispostion Home / Self-Care Condition GOOD Prescriptions Ondansetron Odt (ZOFRAN ODT) 8 Mg Tab 8 MG SL Q6H Y for Nausea, #20 TAB Prov: Robin BrunerJEOVANY 09/10/16 Referrals Doug Peterson M.D. (PCP) Patient Instructions ED Headache Migraine, My [facility] Additional Instructions You have been treated in the Emergency Department for a Headache. You have received pain medicine in the emergency department which impairs your ability to operate a vehicle. It is illegal for you to drive after receiving these medicines. For pain control, you can use the following [id number] medicines (if >12 yo): - Regular strength (325mg/tab) Tylenol (acetaminophen) 2 tabs every 4-6 hours as needed. Do not exceed 12 tablets in a 24 hour period. Avoid taking more than 4 grams (4000 mg) of Tylenol per day. This includes any other sources of acetaminophen you may take on a regular basis. - Regular strength (200 mg/tab) Advil (ibuprofen) 1-2 tabs every 4-6 hours as needed. Do not exceed a dose of 3200 mg per day. You should relax in a quiet, dark place for the rest of the day. Avoid any possible triggers including: cigarette smoke, caffeine, nicotine, chocolate, wine, beer, loud noises or music, or bright lights. You should schedule a follow-up appointment in 2-3 days with your Primary Care Provider or established Neurologist for further evaluation and treatment of your Headache. Return to the Emergency Department if your current symptoms worsen despite treatment course outlined above, or if you develop any of the following symptoms : intractable pain despite aforementioned treatment course, visual disturbances , loss of vision, unilateral weakness or facial drooping, slurring of speech, loss of coordination, or loss of consciousness. Problem Qualifiers Primary Impression: Migraine Migraine type: other Status migrainosus presence: without status migrainosus Intractability: not intractable Qualified Codes: G43.809 - Other migraine, not intractable, without status migrainosus
[2016-09-10] MEDS ORDERED: PROMETHAZINE HCL INJ 50 MG/ML 1 ML VIAL/AMP IM ONE (18:45)
[2016-09-10] MEDS ORDERED: HYDROmorphone INJ 2 MG/ML SYR/VIAL IM ONE (18:45)
[2016-09-10] MEDS ORDERED: GABA1CAP4 PO (18:47)
[2016-09-10] MEDS ORDERED: CYM30 PO (18:47)
[2016-09-10 18:54] VITALS: BP 160/89; PULSE 75; O2SAT 99
== END 2016-09-10 19:14 | disposition home or self-care (01) ==
LOC: C.EDB 17:49 → C.EDD 19:14
DX: G43.909 Migraine, unspecified, not intractable, without status migrainosus (principal); J45.909 Unspecified asthma, uncomplicated; I25.10 Atherosclerotic heart disease of native coronary artery without angina pectoris; F32.9 Major depressive disorder, single episode, unspecified; Z79.899 Other long term (current) drug therapy; Z85.118 Personal history of other malignant neoplasm of bronchus and lung

== ENCOUNTER 2016-10-01 17:05 | Emergency (ER) | payer OTHER ==
[~2016-10-01] VITALS: Ht 162.6 cm; Wt 63.0 kg
[~2016-10-01 17:05] MED LIST changes: +ALBINS/ INH; -ALBU0.08 NEB; -ALBU1AER9 INH; +CYM30 PO; +GABA1CAP4 PO; -ONDA4TAB46 SL; +PROAIR INH
[2016-10-01 17:09] VITALS: TEMP 37.1; Ht 162.6 cm; Wt 63.0 kg
[2016-10-01] MEDS ORDERED: ONDANSETRON INJ 2 MG/ML 2 ML VIAL IV STA (17:17)
[2016-10-01] MEDS ORDERED: FENTANYL CITRATE INJ 50 MCG/1 ML 2 ML VIAL IV STA (17:17)
[2016-10-01] MEDS ORDERED: SODIUM CHLORIDE 0.9% 1000ML 1,000 ML IV STA (17:17)
[2016-10-01 17:39] LABS: BASO % 0.3 %; BASO ABS # 0.01 K/uL (0-0.2); COMPLETE YES; EOS % 2.2 %; HEMATOCRIT 36.1 % (37-47); IG% 0.3 %; LYMPH % 38.9 %; LYMPH ABS # 1.44 K/uL (1.2-3.4); MEAN CELL VOLUME 88.3 fL (80-100); MEAN CORPUSCULAR HEMOGLOBIN 29.6 pg (25-34); MEAN CORPUSCULAR HGB CONC 33.5 g/dl (32-36); MEAN PLATELET VOLUME 9.9 fL (7.4-10.4); MONO % 10.5 %; NEUT % 47.8 %; PLATELET COUNT 176 K/uL (130-400); RED BLOOD COUNT 4.09 M/uL (4.2-5.4)
[2016-10-01] MEDS ORDERED: VNTHFA/IN INH (17:45)
[2016-10-01] MEDS ORDERED: CHN/1 PO (17:45)
[2016-10-01] MEDS ORDERED: FIDA1TAB PO (17:45)
[2016-10-01] MEDS ORDERED: CYAN100074 IM (17:45)
[2016-10-01 17:53] LABS: URINE BILIRUBIN NEG (NEG); URINE EPITHELIAL CELL AUTO >30 /lpf (0-5); URINE NITRITE NEG (NEG); URINE SPECIFIC GRAVITY 1.016 (1.000-1.030); UROBILINOGEN NEG (NEG); ZZUR CULT IF INDIC CLEAN CATCH NO
[2016-10-01 17:54] LABS: MANUAL MICROSCOPIC REQUIRED? NO; REVIEW REQ? NO
[2016-10-01 17:55] LABS: URINE APPEARANCE SLIGHTLY CLOUDY (CLEAR)
[2016-10-01 17:57] LABS: BUN/CREATININE RATIO 13.7 (10-20); CREATININE 0.9 mg/dl (0.60-1.20); POTASSIUM 4.3 mmol/L (3.5-5.1)
[2016-10-01 17:57] LABS: URINE COLOR AMBER
[2016-10-01] MEDS ORDERED: HYDROmorphone INJ 2 MG/ML SYR/VIAL IV STA (18:02)
--- NOTE | 2016-10-01 18:02 | DIAGNOSTIC IMAGING REPORT ---
ABDOMEN AND PELVIS CT WITHOUT CONTRAST CT DOSE: 409.65 mGy.cm HISTORY: Hematuria flank pain TECHNIQUE: Multiaxial CT images of the abdomen and pelvis were performed without the use of intravenous and oral contrast according to the standard department stone protocol. COMPARISON STUDY: 06/05/2016 FINDINGS: Mild chronic fibrotic scarring at right and to a lesser extent left base. Configuration of liver spleen and pancreas are unremarkable. Prior cholecystectomy. These negative for calcification or hydronephrosis. Bowel pattern is nonobstructive. IMPRESSION: Negative study status post cholecystectomy Electronically signed by: Milad Childers M.D. 10/01/2016 6:00 PM Dictated Date/Time: 10/01/2016 5:57 PM
--- NOTE | 2016-10-01 18:33 | EMERGENCY ROOM VISIT NOTE ---
History Report prepared by Win: Reyna Ibarra Under the Supervision of: Dr. Tom Bowles D.O. First contact with patient: 17:12 Chief Complaint: HEMATURIA Stated Complaint: ABDOMINAL PAIN, KIDNEY STONE, HEMATURIA History of Present Illness The patient is a 56 year old female who presents to the Emergency Room with complaints of intermittent hematuria for the past 4 days. She states that initially it started out as very light bleeding that she noticed when she wiped after urinating. Today she states that the bleeding is much darker and more noticeable. The patient reports burning with urination and dysuria, as well as increased urinary frequency and urgency. She is also experiencing bilateral flank pain and bilateral lower abdominal pain. She rates her pain as a 10/10 in severity. The patient states that she is "not really" sexually active. She has a history of kidney stones and states that this feels similar to her previous kidney stones. Source of History: patient Onset: 4 days ago Position: other (bladder) Symptom Intensity: 10/10 Quality: other (hematuria) Timing: intermittent Modifying Factors (Worsening): urination Associated Symptoms: + abdominal pain, + urinary symptoms (dysuria, increased frequency and urgency) Note: Pt notes bilateral flank pain. Review of Systems See HPI for pertinent positives & negatives. A total of 10 systems reviewed and were otherwise negative. Past Medical & Surgical Medical Problems: (1) Acute head trauma (2) Acute headache (3) Asthma, Unspecified (4) Benign hypertension (5) Bronchitis (6) Cephalgia (7) Chest pain (8) Chronic neck pain (9) Chronic obstructive lung disease (10) Coronary artery disease (11) Cough with hemoptysis (12) Depression (13) Ear pain, right (14) Facial pain (15) Gastroparesis (16) Headache (17) Headache (18) Headache (19) Headache (20) Hemoptysis (21) Kidney stone (22) Lung cancer (23) Lung cancer (24) Migraine (25) Migraine (26) Migraine (27) Migraine (28) MIGRAINE UNSPECIFIED W/O INTRACT MGRN W/O STATUS MIGRAINOSUS (29) MYALGIA AND MYOSITIS NOS (30) Pneumonia (31) PNEUMONIA, ORGANISM NOS (32) Right sided abdominal pain (33) Transient ischemic attack (34) UTI (urinary tract infection) Surgical Problems: (1) section (2) Cholecystectomy (3) History of lobectomy of lung (4) Hysterectomy (5) Post-operative state (6) S/P thoracotomy Family History Diabetes mellitus FH: cancer FH: heart disease FHx: gallbladder disease Hypertension Kidney stones Social History Smoking Status: Former Smoker Alcohol Use: none Drug Use: none Marital Status: Housing Status: lives with family Occupation Status: employed Current/Historical Medications Scheduled Albuterol Hfa (Ventolin Hfa), 2 PUFFS INH Q4H Bupropion (Wellbutrin Sr), 150 MG PO BID Cyanocobalamin (Vitamin Deficiency Inject), 1 ML IM WK Duloxetine HCl (Duloxetine HCl), 30 MG PO HS Estrogens, Conjugated (Premarin), 1.25 MG PO QAM Fentanyl (Fentanyl), 75 MCG TOP CQ72HR Fidaxomicin (Dificid), 200 MG PO BID Gabapentin (Gabapentin), 300 MG PO HS Levothyroxine Sodium (Levothyroxine Sodium), 50 MCG PO DAILY Lorazepam (Lorazepam), 1 MG PO BID Oxygen (Oxygen), 2 LITERS NA PRN Varenicline (Chantix), 1 TAB PO BID Scheduled PRN Albuterol Sulf (Proventil 0.083% 2.5MG/3ML), 2.5 MG INH Q4 PRN for SOB/Wheezing Oxycodone/Acetaminophen 7.5MG/325MG (Percocet 7.5MG/325MG), 1 TAB PO Q4H PRN for Pain Allergies Coded Allergies: Codeine (Verified Allergy, Intermediate, HIVES-OK TO TAKE PERCOCET,VICODIN , ETC, 10/01/16) HAS HIVES AND TROUBLE BREATHING WITH TYLENOL # 3, OK TO TAKE PERCOCET, VICODIN, ETC. Ketorolac (Verified Allergy, Intermediate, HIVES, 10/01/16) PATIENT STATES TROUBLE BREATHING AFTER TAKING Coconut (Verified Allergy, Mild, RASH, 10/01/16) Metoclopramide (Verified Allergy, Mild, RASH, SOB, 10/01/16) Aspirin (Verified Allergy, Unknown, rash, 10/01/16) Iodinated Diagnostic Agents (Verified Allergy, Unknown, TACHYCARDIA,SKIN WARM &RED, DRY MOUTH, 10/01/16) Latex1 -Allergic Contact Dermititis (Verified Allergy, Unknown, RASH, ) Naratriptan (Verified Allergy, Unknown, UNKNOWN, 10/01/16) Nortriptyline (Verified Allergy, Unknown, UNKNOWN, 10/01/16) Quinolones (Verified Allergy, Unknown, UNKNOWN, 10/01/16) Morphine (Verified Adverse Reaction, Intermediate, HALLUCINATIONS, 10/01/16) Shellfish (Verified Adverse Reaction, Intermediate, SHORTNESS OF BREATH, ) Physical Exam Vital Signs Date Time Temp Pulse Resp B/P Pulse Ox O2 Delivery O2 Flow Rate FiO2 10/01/16 19:04 87 18 128/81 98 10/01/16 17:09 37.1 110 20 157/86 96 Room Air Physical Exam CONSTITUTIONAL/VITAL SIGNS: Reviewed / noted above. GENERAL: Non-toxic in appearance. INTEGUMENTARY: Warm, dry, and [place]. HEAD: Normocephalic. EYES: without scleral icterus or trauma. ENT/OROPHARYNX: clear and moist. LYMPHADENOPATHY/NECK: Is supple without lymphadenopathy or meningismus. RESPIRATORY: Lungs clear and equal. CARDIOVASCULAR: Regular rate and rhythm. GI/ABDOMEN: Soft and nontender. No organomegaly or pulsatile mass. No rebound or guarding. Normal bowel sounds. EXTREMITIES: Warm and well perfused. BACK: Bilateral CVA tenderness. NEUROLOGICAL: Intact without focal deficits. PSYCHIATRIC: normal affect. MUSCULOSKELETAL: Normally developed with good muscle tone. Medical Decision & Procedures ER Provider Diagnostic Interpretation: Radiology results as stated below per my review and radiologist interpretation: ABDOMEN AND PELVIS CT WITHOUT CONTRAST CT DOSE: 409.65 mGy.cm HISTORY: Hematuria flank pain TECHNIQUE: Multiaxial CT images of the abdomen and pelvis were performed without the use of intravenous and oral contrast according to the standard department stone protocol. COMPARISON STUDY: 06/05/2016 FINDINGS: Mild chronic fibrotic scarring at right and to a lesser extent left base. Configuration of liver spleen and pancreas are unremarkable. Prior cholecystectomy. These negative for calcification or hydronephrosis. Bowel pattern is nonobstructive. IMPRESSION: Negative study status post cholecystectomy Electronically signed by: Milad Childers M.D. 10/01/2016 6:00 PM Dictated Date/Time: 10/01/2016 5:57 PM Laboratory Results 10/01/16 17:30 Red Blood Count 4.09, Mean Corpuscular Volume 88.3, Mean Corpuscular Hemoglobin 29.6, Mean Corpuscular Hemoglobin Concent 33.5, Mean Platelet Volume 9.9, Neutrophils (%) (Auto) 47.8, Lymphocytes (%) (Auto) 38.9, Monocytes (%) (Auto) 10.5, Eosinophils (%) (Auto) 2.2, Basophils (%) (Auto) 0.3, Neutrophils # (Auto ) 1.77, Lymphocytes # (Auto) 1.44, Monocytes # (Auto) 0.39, Eosinophils # (Auto ) 0.08, Basophils # (Auto) 0.01 10/01/16 17:30 Test 10/01/16 17:23 10/01/16 17:30 Urine Color ARPIT Urine Appearance SLIGHTLY CLOUDY (CLEAR) Urine pH 6.0 (4.5-7.5) Urine Specific [place] 1.016 (1.000-1.030) Urine Protein NEG (NEG) Urine Glucose (UA) NEG (NEG) Urine Ketones NEG (NEG) Urine Occult Blood 3+ (NEG) Urine Nitrite NEG (NEG) Urine Bilirubin NEG (NEG) Urine Urobilinogen NEG (NEG) Urine Leukocyte Esterase TRACE (NEG) Urine WBC (Auto) 5-10 /hpf (0-5) Urine RBC (Auto) >30 /hpf (0-4) Urine Hyaline Casts (Auto) 1-5 /lpf (0-5) Urine Epithelial Cells (Auto) >30 /lpf (0-5) Urine Bacteria (Auto) NEG (NEG) White Blood Count 3.70 K/uL (4.8-10.8) Red Blood Count 4.09 M/uL (4.2-5.4) Hemoglobin 12.1 g/dL (12.0-16.0) Hematocrit 36.1 % (37-47) Mean Corpuscular Volume 88.3 fL (80-100) Mean Corpuscular Hemoglobin 29.6 pg (25-34) Mean Corpuscular Hemoglobin Concent 33.5 g/dl (32-36) Platelet Count 176 K/uL (130-400) Mean Platelet Volume 9.9 fL (7.4-10.4) Neutrophils (%) (Auto) 47.8 % Lymphocytes (%) (Auto) 38.9 % Monocytes (%) (Auto) 10.5 % Eosinophils (%) (Auto) 2.2 % Basophils (%) (Auto) 0.3 % Neutrophils # (Auto) 1.77 K/uL (1.4-6.5) Lymphocytes # (Auto) 1.44 K/uL (1.2-3.4) Monocytes # (Auto) 0.39 K/uL (0.11-0.59) Eosinophils # (Auto) 0.08 K/uL (0-0.5) Basophils # (Auto) 0.01 K/uL (0-0.2) RDW Standard Deviation 42.0 fL (36.4-46.3) RDW Coefficient of Variation 13.1 % (11.5-14.5) Immature Granulocyte % (Auto) 0.3 % Immature Granulocyte # (Auto) 0.01 K/uL (0.00-0.02) Anion Gap 11.0 mmol/L (3-11) Est Creatinine Clear Calc Drug Dose 61.7 ml/min Estimated GFR () 84.0 Estimated GFR (Non- 72.5 BUN/Creatinine Ratio 13.7 (10-20) Calcium Level 9.0 mg/dl (8.5-10.1) Laboratory results as stated above per my review. Medications Administered Medications (Trade) Dose Ordered Sig/Tone Route Start Time Stop Time Status Last Admin Dose Admin Sodium Chloride (Nss 1000ml) 1,000 ml @ 999 mls/hr Q1H1M STAT IV 10/01/16 17:17 10/01/16 18:17 DC 10/01/16 17:37 999 MLS/HR Fentanyl Citrate (Fentanyl Inj) 100 mcg NOW STAT IV 10/01/16 17:17 10/01/16 17:18 DC 10/01/16 17:36 100 MCG Ondansetron HCl (Zofran Inj) 4 mg NOW STAT IV 10/01/16 17:17 10/01/16 17:18 DC 10/01/16 17:35 4 MG Hydromorphone HCl (Dilaudid Inj) 2 mg NOW STAT IV 10/01/16 18:02 10/01/16 18:03 DC 10/01/16 18:05 2 MG ED Course 1712: Previous medical records were reviewed. The patient was evaluated in room B3B. A complete history and physical examination was performed. 1717: Zofran 4 mg IV, Fentanyl 100 mcg IV, NSS 1000 ml @ 999 mls/hr IV 1800: The patient is complaining of pain. 1802: Dilaudid 2 mg IV 1833: I reassessed the patient at this time. She is feeling better and resting comfortably. I discussed the results and treatment plan with the patient. I answered all pertaining questions that she had. She expressed understanding and verbalized agreement. The patient will be discharged home. Medical Decision Differential considered: pancreatitis, hepatitis, or acute cholecystitis, AAA, UTI, pyelonephritis, kidney stones, appendicitis, diverticulitis, shingles, bowel obstruction, mesenteric ischemia, intussusception, hernia, ovarian torsion , ruptured ovarian cyst, ectopic , . This is a 56-year-old female who presents to the ED with a chief complaint of bilateral low back pain as well as dysuria and burning, frequency and urgency. The patient reports history of kidney stones. Her physical exam is noted above. She had bilateral CVA tenderness. She is slightly tachycardic on vital signs. Her test results reveal hematuria without bacteriuria. Her chemistry panel was unremarkable. Her CBC was normal. CT scan abdomen and pelvis did not show any acute abnormalities. The patient was told the results of the test. She was treated IV fluids and IV Dilaudid as well as IV fentanyl. She is given IV Zofran for nausea. She continued having some pain. She was felt to be stable for discharge and outpatient follow-up. She does seem to come here regularly for pain medication. When asked how she arrived, when I initially saw the patient before being given narcotics, she stated her daughter dropped her up. At the time of disposition, she was told to call her daughter to pick her up and stated that she already called. She was advised not to drive for the next 6 hours. She was discharged. The patient was observed by security leaving the ED, walked to the other entrance, then returned and entered her vehicle in the passenger side. She was then observed sliding across to the after school driver's side and then drove away. The patient lied about having a ride. She lied about calling her daughter to pick her up and drove despite instructions not to drive on her discharge instructions. She will be placed on the NO NARCOTIC LIST Impression Primary Impression: Hematuria Scribe Attestation The scribe's documentation has been prepared under my direction and personally reviewed by me in its entirety. I confirm that the note above accurately reflects all work, treatment, procedures, and medical decision making performed by me. Departure Information Dispostion Home / Self-Care Referrals No Doctor, Assigned (PCP) Forms HOME CARE DOCUMENTATION FORM, IMPORTANT VISIT INFORMATION, WORK / SCHOOL INSTRUCTIONS Patient Instructions My [facility] Additional Instructions Your CAT scan did not show any acute abnormalities. The urine did show blood without evidence of infection. Culture has been sent. Follow-up with your doctor and urologist. Do not drive or operate machinery and the next 6 hours as you have received narcotic medication here.
[2016-10-01 19:04] VITALS: BP 128/81; PULSE 87; O2SAT 98
== END 2016-10-01 19:07 | disposition home or self-care (01) ==
LOC: C.EDB 17:07
DX: R31.9 Hematuria, unspecified (principal); J45.909 Unspecified asthma, uncomplicated; I10 Essential (primary) hypertension; J44.9 Chronic obstructive pulmonary disease, unspecified; M54.2 Cervicalgia; G89.29 Other chronic pain; I25.10 Atherosclerotic heart disease of native coronary artery without angina pectoris; F32.9 Major depressive disorder, single episode, unspecified; K31.84 Gastroparesis; Z87.442 Personal history of urinary calculi; G43.909 Migraine, unspecified, not intractable, without status migrainosus; Z85.118 Personal history of other malignant neoplasm of bronchus and lung; Z86.73 Personal history of transient ischemic attack (TIA), and cerebral infarction without residual deficits; Z83.3 Family history of diabetes mellitus; Z80.9 Family history of malignant neoplasm, unspecified; Z82.49 Family history of ischemic heart disease and other diseases of the circulatory system; Z83.79 Family history of other diseases of the digestive system; Z84.1 Family history of disorders of kidney and ureter; Z87.891 Personal history of nicotine dependence; Z79.899 Other long term (current) drug therapy

== ENCOUNTER 2016-10-10 13:40 | Emergency (ER) | payer OTHER ==
[~2016-10-10] VITALS: Ht 162.6 cm; Wt 62.4 kg
[~2016-10-10 13:40] MED LIST changes: +CHN/1 PO; +CYAN100074 IM; -CYAN3INJ IM; +FIDA1TAB PO; -ONDA-63 PO; -ONDA8TAB62 SL; -PROAIR INH; -VARE1PAK10 PO; +VNTHFA/IN INH
[2016-10-10 13:48] VITALS: BP 124/77; PULSE 86; TEMP 36.9; O2SAT 92; Ht 162.6 cm; Wt 62.4 kg
[2016-10-10] MEDS ORDERED: HYDROmorphone INJ 1 MG/ML SYR IV STA (14:43)
[2016-10-10] MEDS ORDERED: PROMETHAZINE HCL INJ 25 MG in SODIUM CHLORIDE 0.9% 50ML 50 ML IV STA (14:43)
--- NOTE | 2016-10-10 15:03 | EMERGENCY ROOM VISIT NOTE ---
ED Visit Note First contact with patient: 15:00 I evaluated the patient with our physician therapy administrative assistant. The patient was upset that she was not going to receive narcotics. She was advised that she was observed driving away on her last visit and did not have a ride. She did not have her daughter dropped her off or pick her up. She was advised that she would not receive narcotics here unless something was found to be wrong with her that required narcotics. The patient stormed out of the ED upset that she was not going to get narcotics and did not want any further evaluation for her current symptoms.
--- NOTE | 2016-10-10 15:13 | EMERGENCY ROOM VISIT NOTE ---
History First contact with patient: 14:31 Chief Complaint: PAIN (GENERALIZED) Stated Complaint: PAIN - RESP 12/16/15 LUNG REMOVAL, LOWER LOBE History of Present Illness The patient is a 56 year old female who presents to the Emergency Room via private vehicle with complaints of "pain, lumbar removal, lower lobe". The patient states that she has been dealing with pain in the right lung over the region of the incision since the surgery was performed in November 2015. She states that this worsened yesterday around 10:30 AM and now she has extreme pain throughout the incision region. She states that she believes her fentanyl patches are also defective. She states that she is on her second box from the architect marine, and states they're going to send her covers. She states she called the person who is prescribed a fentanyl patches, and they stated they are not able to prescribe more until these were utilized. She states that she was told by physician that she will be in the pain in the long for the rest of her life. She also takes pain medication at home. She rates her overall pain as a 10/10. She states her pain medication is not working. She specifically requests Dilaudid 2 mg and 50 mg of Phenergan. Review of Systems A complete 10-point Review of Systems was discussed with the patient, with pertinent positives and negatives listed in the History of Present Illness. All remaining Review of Systems questions can be considered negative unless otherwise specified. Past Medical/Surgical History Medical Problems: (1) Acute head trauma (2) Acute headache (3) Asthma, Unspecified (4) Benign hypertension (5) Bronchitis (6) Cephalgia (7) Chest pain (8) Chronic neck pain (9) Chronic obstructive lung disease (10) Coronary artery disease (11) Cough with hemoptysis (12) Depression (13) Ear pain, right (14) Facial pain (15) Gastroparesis (16) Headache (17) Headache (18) Headache (19) Headache (20) Hemoptysis (21) Kidney stone (22) Lung cancer (23) Lung cancer (24) Migraine (25) Migraine (26) Migraine (27) Migraine (28) MIGRAINE UNSPECIFIED W/O INTRACT MGRN W/O STATUS MIGRAINOSUS (29) MYALGIA AND MYOSITIS NOS (30) Pneumonia (31) PNEUMONIA, ORGANISM NOS (32) Right sided abdominal pain (33) Transient ischemic attack (34) UTI (urinary tract infection) Surgical Problems: (1) section (2) Cholecystectomy (3) History of lobectomy of lung (4) Hysterectomy (5) Post-operative state (6) S/P thoracotomy Family History Diabetes mellitus FH: cancer FH: heart disease FHx: gallbladder disease Hypertension Kidney stones Social History Smoking Status: Never Smoker Alcohol Use: none Drug Use: none Marital Status: Housing Status: lives with family Occupation Status: employed Current/Historical Medications Scheduled Albuterol Hfa (Ventolin Hfa), 2 PUFFS INH Q4H Bupropion (Wellbutrin Sr), 150 MG PO BID Cyanocobalamin (Vitamin Deficiency Inject), 1 ML IM WK Duloxetine HCl (Duloxetine HCl), 30 MG PO HS Estrogens, Conjugated (Premarin), 1.25 MG PO QAM Fentanyl (Fentanyl), 75 MCG TOP CQ72HR Fidaxomicin (Dificid), 200 MG PO BID Gabapentin (Gabapentin), 300 MG PO HS Levothyroxine Sodium (Levothyroxine Sodium), 50 MCG PO DAILY Lorazepam (Lorazepam), 1 MG PO BID Oxygen (Oxygen), 2 LITERS NA PRN Varenicline (Chantix), 1 TAB PO BID Scheduled PRN Albuterol Sulf (Proventil 0.083% 2.5MG/3ML), 2.5 MG INH Q4 PRN for SOB/Wheezing Oxycodone/Acetaminophen 7.5MG/325MG (Percocet 7.5MG/325MG), 1 TAB PO Q4H PRN for Pain Allergies Coded Allergies: Codeine (Verified Allergy, Intermediate, HIVES-OK TO TAKE PERCOCET,VICODIN , ETC, 10/10/16) HAS HIVES AND TROUBLE BREATHING WITH TYLENOL # 3, OK TO TAKE PERCOCET, VICODIN, ETC. Ketorolac (Verified Allergy, Intermediate, HIVES, 10/10/16) PATIENT STATES TROUBLE BREATHING AFTER TAKING Coconut (Verified Allergy, Mild, RASH, 10/10/16) Metoclopramide (Verified Allergy, Mild, RASH, SOB, 10/10/16) Aspirin (Verified Allergy, Unknown, rash, 10/10/16) Iodinated Diagnostic Agents (Verified Allergy, Unknown, TACHYCARDIA,SKIN WARM &RED, DRY MOUTH, 10/10/16) Latex1 -Allergic Contact Dermititis (Verified Allergy, Unknown, RASH, 10/10) Naratriptan (Verified Allergy, Unknown, UNKNOWN, 10/10/16) Nortriptyline (Verified Allergy, Unknown, UNKNOWN, 10/10/16) Quinolones (Verified Allergy, Unknown, UNKNOWN, 10/10/16) Morphine (Verified Adverse Reaction, Intermediate, HALLUCINATIONS, 10/10/16 ) Shellfish (Verified Adverse Reaction, Intermediate, SHORTNESS OF BREATH, ) Physical Exam Vital Signs Date Time Temp Pulse Resp B/P Pulse Ox O2 Delivery O2 Flow Rate FiO2 10/10/16 13:48 36.9 86 18 124/77 92 Room Air Physical Exam VITAL SIGNS - Vital signs and nursing notes were reviewed. Afebrile, hypertensive at 171/84, non-tachycardic and is saturating well on room air 95%. GENERAL -56-year-old female appearing her stated age who is in no acute distress. Communicates well with provider and answers questions appropriately. SKIN - Without rashes. No petechial rashes. The incision appears to be well- healed. There is tenderness over this region. The patient did have the breast region covered during my inspection/examination. HEAD - NC/AT. EYES - Sclera anicteric. Palpebral conjunctiva pink and moist with no injection noted. LUNGS - Chest wall symmetric without accessory muscle use, intercostals retractions, or central cyanosis. Normal vesicular breath sounds CTA B/L. No wheezes, rales, or rhonchi appreciated. There is tenderness to palpation overlying the incision regions of the right anterior chest. CARDIAC - RRR with S1/S2. No murmur, rubs, or gallops appreciated. Medical Decision & Procedures Laboratory Results Medical Decision Patient was seen and evaluated as above. Her previous visits were reviewed. It was stated that she is no longer to receive narcotics here as it was found that she drove on a previous visit after receiving narcotics. Upon examination she does have exquisite tenderness overlying the incision region which is nearly one year old. There was no signs of cellulitis or infection. I informed her that there could be serious causes of this pain therefore did elect to establish IV access, and ordered the above workup. The patient asked if I would give her 2 mg of Dilaudid, 50 mg of Phenergan for her pain, stating that this is what she typically receives on previous visits. She points to the fentanyl patch on her chest stating that she believes it is defective, and has contacted the prescriber of this and notes that this has been changed and she still believes she has defective patches. She states that they do not seem to stick and when she feels the patch it feels dry. She states that the manufacturers is going to send her a cover to help with this. After I went back and talked the patient and informed her that I would not be able to give her narcotic medication as it appears that she drove after receiving these narcotics, she then became very agitated and asked if I was going to leave her lie there in pain. It was at this point and that I offered her additional pain relieving modalities. I then went and spoke with my attending, Dr. Bowles, who had seen her on a previous visit and had requested her to be no narcotics. He informed her that we would not be providing her with narcotics as we are concerned because she drove after receiving narcotics on a previous visit. I then went and spoke with the patient afterwards and she was agitated, and I informed her that I would still be more than happy to further look into the causes of her pain as I'm concerned that there could be life-threatening etiologies. She stated that "you know if somebody is in pain to long they can from pain". In reference to the above, I offered her essentially every other pain option other than narcotics. She states that she is going to get her surgical garment inspector, and she was beginning to gather her belongings. I asked her if there was anything additional i could do, and apologized for the inconvenience and again reiterated the importance of further looking into the causes of her pain, and stated that we are here 24 7 for any new/concerning symptoms. The patient then left the emergency department. Review of the [place] drug monitoring system does reveal a recent prescription for oxycodone-acetaminophen, and current prescription of fentanyl, and lorazepam. In the evaluation and treatment this patient the following differential diagnoses were entertained: Pulmonary embolism, bronchitis, pneumonia, emphysema , infectious, pneumothorax, drug seeking behavior, among others. [place] Drug Monitoring Program Search Results: patient reviewed within database, see additional documentation Impression Primary Impression: Chest wall pain Departure Information Dispostion Against Medical Advice Condition POOR Referrals Don Copeland PA-C (PCP) Patient Instructions [facility]
== END 2016-10-10 15:20 | disposition home or self-care (01) ==
LOC: C.EDB 13:41 → C.EDC 15:20
DX: R07.89 Other chest pain (principal); I10 Essential (primary) hypertension; I25.10 Atherosclerotic heart disease of native coronary artery without angina pectoris; J44.9 Chronic obstructive pulmonary disease, unspecified; J45.909 Unspecified asthma, uncomplicated; K31.84 Gastroparesis; F32.9 Major depressive disorder, single episode, unspecified; Z86.73 Personal history of transient ischemic attack (TIA), and cerebral infarction without residual deficits; Z87.440 Personal history of urinary (tract) infections; Z87.442 Personal history of urinary calculi; Z87.820 Personal history of traumatic brain injury; Z85.118 Personal history of other malignant neoplasm of bronchus and lung; Z90.2 Acquired absence of lung [part of]; Z90.710 Acquired absence of both cervix and uterus; Z90.49 Acquired absence of other specified parts of digestive tract; Z98.890 Other specified postprocedural states; Z79.899 Other long term (current) drug therapy; Z88.5 Allergy status to narcotic agent; Z88.6 Allergy status to analgesic agent; Z88.8 Allergy status to other drugs, medicaments and biological substances; Z91.018 Allergy to other foods; Z91.040 Latex allergy status; Z91.041 Radiographic dye allergy status; Z83.3 Family history of diabetes mellitus; Z80.9 Family history of malignant neoplasm, unspecified; Z82.49 Family history of ischemic heart disease and other diseases of the circulatory system; Z83.79 Family history of other diseases of the digestive system; Z84.1 Family history of disorders of kidney and ureter

== ENCOUNTER → 2016-11-18 | Outpatient (CLI) | payer OTHER ==
--- NOTE | 2016-11-18 15:42 | DIAGNOSTIC IMAGING REPORT ---
CHEST CT WITHOUT CONTRAST CT DOSE: 197.71 mGy.cm HISTORY: Hemoptysis. Right-sided chest pain. TECHNIQUE: Multiaxial CT images of the chest were performed without contrast. COMPARISON: Chest CT 08/14/2015. FINDINGS: Prior right upper and middle lobectomies. This accounts for the right mediastinal shift, unchanged. Emphysema. Biapical small bullae remain unchanged. Calcified granuloma within the lingula. There is a new 1.6 cm patchy area of consolidation within the base of the lingula. No pneumothorax. No pleural effusions. Linear densities within the right lung base favor scarring. These are not significantly changed. Right apical suture material is also noted. Remaining central airways are patent. No suspicious lytic or blastic osseous lesions. No acute fractures within the visualized osseous structures. Mild right apical pleural thickening remains unchanged. Cholecystectomy. The unenhanced liver, spleen, and adrenal glands are unremarkable. The heart is normal in size. No mediastinal or hilar lymphadenopathy. Normal caliber thoracic aorta. IMPRESSION: 1. A new 1.6 cm patchy area of consolidation within the base of the lingula. This favors a small focus of pneumonia. [address] follow is recommended to ensure resolution and to exclude a developing nodule. 2. Postoperative changes within the right lung as described above, unchanged. 3. Emphysema. Electronically signed by: Lazaro Real M.D. 11/18/2016 3:40 PM Dictated Date/Time: 11/18/2016 3:26 PM
== END | disposition home or self-care (01) ==
LOC: C.CTS 15:12
PROVIDERS: ATTEND Physician Assistant
DX: R04.2 Hemoptysis (principal); J43.9 Emphysema, unspecified

== ENCOUNTER → 2016-11-18 | Outpatient (CLI) | payer OTHER ==
[2016-11-18 16:42] LABS: BASO % 0.2 %; BASO ABS # 0.01 K/uL (0-0.2); COMPLETE YES; EOS % 1.3 %; HEMATOCRIT 40.2 % (37-47); IG% 0.2 %; LYMPH % 19.6 %; LYMPH ABS # 1.21 K/uL (1.2-3.4); MEAN CELL VOLUME 91.2 fL (80-100); MEAN CORPUSCULAR HEMOGLOBIN 29.7 pg (25-34); MEAN CORPUSCULAR HGB CONC 32.6 g/dl (32-36); MEAN PLATELET VOLUME 10.4 fL (7.4-10.4); MONO % 7.4 %; NEUT % 71.3 %; PLATELET COUNT 226 K/uL (130-400); RED BLOOD COUNT 4.41 M/uL (4.2-5.4); WHITE BLOOD COUNT 6.18 K/uL (4.8-10.8)
[2016-11-18 16:51] LABS: PROTHROMBIN TIME (PATIENT) 10.4 SECONDS (9.0-12.0)
[2016-11-18 17:22] LABS: ALT/SGPT 19 U/L (12-78); AST/SGOT 12 U/L (15-37); BLOOD UREA NITROGEN 14 mg/dl (7-18); BUN/CREATININE RATIO 14.5 (10-20); CALCIUM 8.9 mg/dl (8.5-10.1); CARBON DIOXIDE 26 mmol/L (21-32); CHLORIDE 107 mmol/L (98-107); GLUCOSE 124 mg/dl (70-99); POTASSIUM 4.2 mmol/L (3.5-5.1); SODIUM 140 mmol/L (136-145)
[2016-11-18 17:24] LABS: ALB/GLOB RATIO 0.8 (0.9-2); ALKALINE PHOSPHATASE 107 U/L (45-117)
== END | disposition home or self-care (01) ==
LOC: C.CTS 15:15
PROVIDERS: ATTEND Physician Assistant
DX: R04.2 Hemoptysis (principal)

== ENCOUNTER 2016-11-28 08:37 | Day surgery (SDC) | payer OTHER ==
[~2016-11-28] VITALS: Ht 162.6 cm; Wt 62.0 kg
[2016-11-28] VITALS (14 sets, daily range): BP systolic 96–163; BP diastolic 48–88; PULSE 69–77; TEMP 36.4–37.2; O2SAT 97–100; Ht 162.6 cm; Wt 62.0 kg
[2016-11-28] MEDS ORDERED: FENTANYL CITRATE 100 MCG 2 ML CARP IV ONE (08:38)
[2016-11-28] MEDS ORDERED: MIDAZOLAM HCL 5 MG/ML 2ML VIAL IV ONE (08:38)
--- NOTE | 2016-11-28 10:09 | Procedure Note ---
Pre-Mod Sedation Assessment General Date of Moderate Sedation: November 28, 2016. Vital Signs: Vital Signs Past 12 Hours Date Time Temp Pulse Resp B/P Pulse Ox O2 Delivery O2 Flow Rate FiO2 11/28/16 09:09 37.2 74 20 139/77 100 Room Air Pre-Sedation Airway Assessment Oral Cavity: WNL Short Thick Neck: No Hx of Sleep Apnea: No Smoking Status: Former Smoker Mallampati Classification: Class I ASA Classification: Class II Procedure Planning Contraindications-for Mod Sed: None Yes Notes The planned sedation has been discussed with the patient and consent obtained. I have identified the patient, determined the appropriateness of sedation and have assessed the patient immediately prior to the procedure. All medicine(s) and interventions are by my order.
--- NOTE | 2016-11-28 10:09 | History & Physical Bridge Note ---
H&P Re-Evaluation Bridge Note: I have examined the patient, reviewed the History & Physical and in the interval since the performance of the History & Physical I have noted the following changes of clinical significance: No changes noted
[2016-11-28] MEDS ORDERED: ONDANSETRON INJ 2 MG/ML 2 ML VIAL ONE (10:27)
[2016-11-28] MEDS ORDERED: NURSING VERBAL MED ORDER ONE (10:45)
[2016-11-28] MEDS ORDERED: FENTANYL CITRATE INJ 50 MCG/1 ML 2 ML VIAL IV ONE (11:00)
[2016-11-28] MEDS ORDERED: MIDAZOLAM HCL 5 MG/ML 1 ML VIAL IV ONE (11:00)
--- NOTE | 2016-11-28 11:40 | OPERATIVE REPORT ---
DATE OF OPERATION: 11/28/2016 PROCEDURE: Fiberoptic bronchoscopy with bronchoalveolar lavage. INDICATIONS: Hemoptysis/history of bronchogenic carcinoma with new lingular infiltrate. SURGEON: Dr. Peterson. ANESTHESIA PREOPERATIVELY: None. ANESTHESIA DURING PROCEDURE: Fentanyl 150 mcg IV, 10 mg IV Versed, 20 mL 2% Xylocaine spray above and below the cords, 4% viscous xylocaine intranasally, 4 mg IV Zofran. PROCEDURE: The fiberoptic bronchoscope was inserted into the left naris with minimal difficulty and passed to the level of the true vocal cords. The cords appeared to approximate normally with phonation without evidence for lesions or paralysis. The scope was then introduced in the trachea and right and left tracheobronchial tree. The luci was sharp. The right main stem bronchus was explored. The right upper lobe surgical cuff was clean without any obvious lesions and no sign of bleeding. The bronchus intermedius were within normal limits. The right middle lobe showed fish mouthing and was then at the orifice was entered and the surgical ryan were visible. The right lower lobe with all basilar segments were identified and no obvious endobronchial lesions were seen with mucus pitting and bronchial crypts and clefts seen throughout the right tracheobronchial tree. No active bleeding was encountered. The right upper lobe, surgical cuff, right middle lobe and right lower lobe were copiously lavaged with normosol and the aspirate sent for appropriate studies. Left tracheobronchial tree was explored and no endobronchial lesion were seen. No active bleeding was encountered. Left main stem bronchus was free of endobronchial lesions. Left upper lobe of the apical-posterior and anterior segments and lingula subdivision with the superior and inferior segments and their respective subsegments were free of endobronchial lesions with no active bleeding. A small amount of purulent looking secretion was lavaged from the lingula and left upper lobe orifice until clear and sent for appropriate studies. No brushings or biopsies were deemed necessary. Left lower lobe with all basilar segments were free of endobronchial lesions. Bronchial crypts and clefts were seen throughout the left tracheobronchial tree with mucus pitting pronounced throughout the left tracheobronchial tree. The procedure was terminated. The patient tolerated the procedure well and was given 4 mg of IV Zofran after complaining of mild nausea with no emesis encountered. The patient was given a nebulizer treatment with Xopenex 1.25 mg then transferred to the medical treatment unit hemodynamically stable with no further signs of respiratory compromise. Will await microbiological and cytologic examination of the bronchial washings. The CT scan of the chest from 11/18/2016 was reviewed prior to the study and comparison was made from a September 2016 CAT scan of the abdomen and pelvis. The 1.6 cm patchy area of consolidation within the base of lingula was not present a month earlier suggesting an inflammatory or infectious etiology. Emphysema was noted and evidence for biapical bullae was noted and also suggestion of a previous right upper and middle lobectomies were noted. I attest to the content of the Intraoperative Record and any orders documented therein. Any exceptio ns are noted below.
--- NOTE | 2016-11-28 12:38 | Discharge Instructions ---
Discharge Instructions Date of Service November 28, 2016. Visit Reason for Visit: Hemoptysis Latex Allergy Discharge Discharge Diagnosis / Problem: Hemoptysis Discharge Goals Goal(s): Learn about illness, Diagnostic testing Activity Recommendations Activity Limitations: resume your previous activity Lifting Limitations: none Exercise/Sports Limitations: none May Resume Sexual Activity: when tolerated Shower/Bathe: no limitations Anesthesia . Post Anesthesia Instructions: If you have had General Anesthesia or IV Sedation: * Do not drive today. * Resume driving when surgeon permits. * Do not make important decisions or sign legal documents today. * Call surgeon for: 1. Temperature elevations greater than 101 degrees F. 2. Uncontrollable pain. 3. Excessive bleeding. 4. Persistent nausea and vomiting. 5. Medication intolerance (nausea, vomiting or rash). * For nausea and vomiting use only clear liquids such as: tea, soda, bouillon until nausea subsides, then gradually increase diet as tolerated. * If you have any concerns or questions, call your surgeon's office. If physician is unavailable and it is an emergency, call 911 or go to the nearest emergency room. . Instructions / Follow-Up Instructions / Follow-Up ACTIVITY RECOMMENDATIONS: * Rest today, resume normal activity tomorrow. * Do not drive today. SPECIAL CARE INSTRUCTIONS: * Call your physician if you experience any chest or shoulder pain, fever, coughing, spitting up blood (more than 2 teaspoons) or excessive shortness of breath. * Remove dressing from IV site (where needle was placed into the vein) after 2 hours. Apply a warm, moist compress to site if irritation occurs. Call physician if site becomes red or painful to touch. * You may eat 4 hours after the completion of your procedure * Resume all usual medications as previously directed FOLLOW UP VISIT: * Keep any scheduled doctor appointments. Diet Recommendations Recommended Home Diet: no limitations, resume previous diet Procedures Procedures Performed: Bronchoscopy Pending Studies Studies pending at discharge: yes List of pending studies: Culture Medical Emergencies . Who to Call and When: Medical Emergencies: If at any time you feel your situation is an emergency, please call 911 immediately. . Non-Emergent Contact Non-Emergency issues call your: Primary Care Provider Call Non-Emergent contact if: you have a fever, temperature is above 101 . . "Provider Documentation" section prepared by Don Copeland PA-C. .
[2016-12-03 13:53] LABS: HERPES SIMPLEX CULT SOURCE OTHER-LINGULAR WASH; HERPES SIMPLEX VIRUS CULT NOT ISOLATED (NOT ISOLATED)
== END 2016-11-28 13:00 | disposition home or self-care (01) ==
LOC: C.ACU 08:37
PROVIDERS: ATTEND Internal Medicine Pulmonary Disease
DX: R04.2 Hemoptysis (principal); J44.9 Chronic obstructive pulmonary disease, unspecified; Z87.891 Personal history of nicotine dependence; N18.3 Chronic kidney disease, stage 3 (moderate); Z87.442 Personal history of urinary calculi; K21.9 Gastro-esophageal reflux disease without esophagitis; I10 Essential (primary) hypertension; E03.9 Hypothyroidism, unspecified; M81.0 Age-related osteoporosis without current pathological fracture; Z90.49 Acquired absence of other specified parts of digestive tract; Z90.710 Acquired absence of both cervix and uterus; Z90.2 Acquired absence of lung [part of]; Z80.3 Family history of malignant neoplasm of breast; Z82.49 Family history of ischemic heart disease and other diseases of the circulatory system; Z83.3 Family history of diabetes mellitus; Z85.118 Personal history of other malignant neoplasm of bronchus and lung; Z80.1 Family history of malignant neoplasm of trachea, bronchus and lung